=== PATIENT | male | born 1990 | race Caucasian/White ===

== ENCOUNTER 2018-11-17 17:20 | Emergency (ER) | payer MEDICAID, SELFPAY ==
[2018-11-17 17:21] VITALS: BP 119/84; PULSE 108; RESP 16; TEMP 36.4; O2SAT 100
[2018-11-17 17:22] VITALS: BP 119/84; PULSE 103; RESP 16; TEMP 36.4; O2SAT 100; BMI 23.6
--- NOTE | 2018-11-17 17:37 | ED.DCSUM_ITS ---
History of Present Illness Chief Complaint: Seizure Informant: Patient, Director Of Pharmacy Onset: Today Context: Gradual Onset - felt it coming on all day Timing: Continuous Quality: unk Location: unk Narrative: Patient was not conscious during the episode but was told he had a seizure. He states he feels like he had a seizure, he has had this happen around 10 times or so in the past, every time is been when he discontinued benzodiazepines. He states he was on Xanax for a long time for anxiety, he was prescribed in [place] along with a large amount of Suboxone, and after coming to [place] to live 2 years ago he was changed with regards to doses and the doctor would not prescribe him Xanax anymore. Now, he finds it on the street when he can. He states every time he runs out, which occurred 2 or 3 days ago, he ends up having a seizure 2 or 3 days after the last dose as happened at this time. He has never had seizures in any other context. The last one he had was a couple months ago, and states he has been taking Xanax consistently for a couple months now until 3 days ago. He has a headache right now, feels like I hit my head although he does not know. 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 He has been compliant with his Suboxone denies any other drug or alcohol use. Capacity - Capacity Assessment Tool Can the patient make a choice & communicate that choice?: Yes Can the patient understand benefits, risks and alternatives?: Yes Can the patient make a logical, rational choice?: Yes Is the choice the patient makes consistent w/ their values?: Yes Is there an impending, emergent risk to the patient?: No Is there a Surrogate Available?: No - Past Medical History (1) Anxiety Status: Chronic (2) Opioid dependence Status: Chronic Past Medical History - Allergies and Home Meds Allergies/Adverse Reactions: Allergies No Known Allergies Allergy (Verified 11/17/18 17:32) Primary Care Physician: Odetet Ceron,Out of [NON-STAFF] - Smoking Status: Current every day smoker Alcohol: None Review of Systems General: Reports: Malaise. Denies: Chills, Fever, Sweats Eyes: Denies: Visual changes - bilaterally, Diplopia ENT: Denies: Rhinorrhea, Sore throat Cardiovascular: Denies: Chest pain, Palpitations Respiratory: Denies: Dyspnea, Cough, Dyspnea on exertion Gastrointestinal: Denies: Abdominal pain, Nausea, Vomiting, Diarrhea, Melena, Hematochezia Genitourinary: Denies: Dysuria, Hematuria, Frequency Musculoskeletal: Denies: Back pain, Swelling, Extremity Pain Skin: Denies: Rash, Abscess, Wounds Neurological: Reports: Headache. Denies: Weakness, Numbness Physical Exam Vital Signs/Narrative: Vital Signs Temp Pulse Resp BP Pulse Ox 11/17/18 17:22 97.6 F L 103 H 16 119/84 H 100 11/17/18 17:21 97.6 F L 108 H 16 119/84 H 100 Inital Vital Signs reviewed: Yes General: Well nourished, Well developed, No Acute Distress Head: Normocephalic, Atraumatic. Negative for: Tenderness Eyes: Perrl - 4-5 mm bilaterally, EOMI ENT: Moist mucous membranes, No rhinorrhea Neck: Supple - Full range of motion without difficulty or pain, Nontender Cardiovascular: Regular rate, Regular rhythm, No murmurs, Tachycardia - Mild Respiratory: No distress, CTA bilaterally, Chest nontender Abdomen: Soft, Nontender, Nondistended, Normal bowel sounds Back: Nontender, Normal Inspection Extremities: Nontender, No edema Skin: Normal color, No rash Neurological: Alert, Oriented x3, Cranial nerves II-XII grossly intact, Normal Strength, Normal Sensation Psychological: Normal affect, Normal Mood Diagnostic/Tx/Re-eval - Medical Decision Making Patient is refusing to have blood work, antiepileptic, CT head. Although he was oriented, he states he is thinking more clearly now, states that what he told me is true and that he has had this happen multiple times before and he knows why he had a seizure, he was monitored here for 1.5 hours and had no further seizure activity and he wants to go home. He has a ride. He is ambulatory without difficulty, coherent, does not appear intoxicated, and appears to have the capacity to make these decisions. He is not asking for benzodiazepines. 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 He is agreeable to this plan. Of note, he probably did have a seizure related to benzodiazepine withdrawal, however he does not appear to be in florid withdrawal at this time. His vital signs are stable and clinically he is stable with no further seizure activity so I am okay with discharge. ED Disposition - Plan for ED Patient: Disposition: Home or Assisted Living Diagnosis: Drug withdrawal seizure Instructions: SEIZURE, Recurrent [Adult] Referrals: [facility],Out of [NON-STAFF] - 3-5 Days Additional Instructions: No driving until cleared by your doctor or neurologist. Return to the ER for any recurrent seizures. Avoid benzodiazepines/Xanax.
[2018-11-17] MEDS: Acetaminophen 500 MG Tablet 1000 MG PO (17:44)
--- NOTE | 2018-11-17 18:02 | ED.RN ---
PT REFUSING IV, KEPPRA, AND CT SCAN. DR. ROJAS INFORMED OF SAME.
[2018-11-17 18:37] VITALS: BP 109/68; PULSE 72; RESP 12; O2SAT 97
== END 2018-11-17 18:38 | disposition home or self-care (01) ==
PROVIDERS: Emergency Provider Emergency Medicine
DX: R56.9 Unspecified convulsions (principal); F13.239 Sedative, hypnotic or anxiolytic dependence with withdrawal, unspecified; F17.200 Nicotine dependence, unspecified, uncomplicated
CPT/HCPCS: 99285; J7030; J7040; A4216